=== PATIENT | female | born 1940 ===

== ENCOUNTER → 2018-01-11 | Outpatient (CLI) | payer OTHER, BC | LOC: BRMIMAGING 13:06 | PROVIDERS: ATTEND Internal Medicine | DX: M54.9 Dorsalgia, unspecified (principal); M19.041 Primary osteoarthritis, right hand; M19.042 Primary osteoarthritis, left hand; M75.31 Calcific tendinitis of right shoulder; M75.32 Calcific tendinitis of left shoulder | CPT/HCPCS: 72070-PO; 73030-PO; 73130-PO ==